=== PATIENT | male | born 1955 | race African-American/Black ===

== ENCOUNTER 2018-08-14 10:20 | Emergency (ER) | payer MEDICAID ==
[~2018-08-14] VITALS: Ht 175.3 cm; Wt 90.7 kg
[2018-08-14] MEDS ORDERED: FOLIC ACID1 MG ORAL (10:43)
[2018-08-14] MEDS ORDERED: METOPROLOL TART50 M1 ORAL (10:43)
[2018-08-14] MEDS ORDERED: ASPIR 8181 MG ORAL (10:43)
[2018-08-14] MEDS ORDERED: PLAVIX75 MG ORAL (10:43)
[2018-08-14] MEDS ORDERED: ATORVASTATIN CA40 MG ORAL (10:43)
[2018-08-14] MEDS ORDERED: Vancomycin 1 GM in NS 275 ML IV ONE (10:45)
[2018-08-14] MEDS ORDERED: AMLODIPINE BESY10 MG ORAL (10:45)
[2018-08-14] MEDS ORDERED: QUETIAPINE FUMA50 MG ORAL (10:45)
[2018-08-14] MEDS ORDERED: HYDROCHLOROTH12.5 M2 ORAL (10:45)
[2018-08-14] MEDS ORDERED: LORAZEPAM0.5 MG ORAL (10:45)
[2018-08-14] MEDS ORDERED: DONEPEZIL HCL10 M2 ORAL (10:45)
[2018-08-14 11:15] VITALS: BP 159/81
[2018-08-14 11:30] LABS: BASOPHILS % (AUTO) 1.3 % (0.0-2.0); EOSINOPHILS % (AUTO) 6.7 % (0.0-3.0); HEMOGLOBIN 10.5 G/DL (14.2-18.0); LYMPHOCYTES % (AUTO) 23.6 % (20.0-45.0); MEAN CORPUSCULAR VOLUME 78 FL (80-99); MONOCYTES % (AUTO) 10.2 % (1.0-10.0); NEUTROPHILS % (AUTO) 58.2 % (45.0-75.0); PLATELET COUNT 255 K/UL (150-450); RED BLOOD COUNT 4.11 M/UL (4.70-6.10)
[2018-08-14 11:47] LABS: ANION GAP 7 mmol/L (5-15); BLOOD UREA NITROGEN 21 mg/dL (7-18); CALCIUM 9.4 MG/DL (8.5-10.1); CARBON DIOXIDE 32 MMOL/L (21-32); CHLORIDE 105 MMOL/L (98-107); CREATININE 1.3 MG/DL (0.55-1.30); SODIUM 144 MMOL/L (136-145)
[2018-08-14 11:53] LABS: ALANINE AMINOTRANSFERASE 14 U/L (12-78); ALBUMIN 3.1 G/DL (3.4-5.0); ALBUMIN/GLOBULIN RATIO 0.7 (1.0-2.7); ALKALINE PHOSPHATASE 78 U/L (46-116); ASPARTATE AMINO TRANSFERASE 16 U/L (15-37); BILIRUBIN,TOTAL 0.4 MG/DL (0.2-1.0); CREATINE KINASE 72 U/L (26-308)
[2018-08-14] MEDS ORDERED: Isovue-300 100ml vial INJ PRN ×2 (13:45→14:45)
[2018-08-14 14:00] VITALS: BP 162/84
--- NOTE | 2018-08-14 14:50 | Emergency Room Report ---
History of Present Illness General Chief Complaint: Skin Rash/Abscess Source: Patient Present Illness HPI This patient presents from an assisted living facility. Per report, this patient had some area of swelling and warmth that was concerning for infection on his right upper leg. The patient himself has a history of CVA and is nonverbal at baseline. He is unable to give a history. He will shake his head yes and I asked him if he has pain in this location. There are no other complaints. Allergies: Coded Allergies: No Known Allergies (Unverified , 08/14/18) Patient History Past Medical History: see triage record, HTN, CVA/TIA, dementia Social History: Denies: smoking, alcohol use, drug use Reviewed Nursing Documentation: PMH: Agreed; PSxH: Agreed Nursing Documentation-PMH Past Medical History: No History, Except For Hx Cardiac Problems: No Hx Hypertension: Yes Hx Pacemaker: No Hx Asthma: No Hx COPD: No Hx Diabetes: No Hx Cancer: No Hx Gastrointestinal Problems: No Hx Dialysis: No - BPH History Of Psychiatric Problem: No Hx Neurological Problems: Yes - Dementia Hx Cerebrovascular Accident: Yes Hx Seizures: No Review of Systems All Other Systems: limited Physical Exam Vital Signs Date Time Temp Pulse Resp B/P (MAP) Pulse Ox O2 Delivery O2 Flow Rate FiO2 08/14/18 10:24 98.2 88 16 152/88 100 Room Air 98.2 Sp02 EP Interpretation: reviewed, normal General Appearance: no apparent distress, alert, GCS 15, non-toxic Head: normocephalic, atraumatic Eyes: bilateral eye normal inspection, bilateral eye PERRL ENT: hearing grossly normal, no angioedema Neck: full range of motion, supple/symm/no masses Respiratory: chest non-tender, lungs clear, normal breath sounds, no respiratory distress, no retraction, no accessory muscle use, speaking full sentences Cardiovascular #1: regular rate, rhythm, no edema Gastrointestinal: normal bowel sounds, non tender, soft, non-distended, no guarding, no rebound Rectal: deferred Musculoskeletal: normal range of motion, other - R. lateral thigh with swelling , ? warmth. TTP in that location. No obvious erythema. Neurologic: alert, responsive, other - Non-verbal at baseline. At baseline per history. Psychiatric: mood/affect normal Skin: warm/dry, well hydrated, other - See above in MSK. Medical Decision Making Diagnostic Impression: Primary Impression: Cellulitis ER Course This patient has findings on exam that is likely cellulitis. The patient is pending a CT of the thigh to assess for possible occult abscess, although, did not palpate any fluctuance and I have a low suspicion for this. Regardless, CT is pending at the time of this dictation. The patient is also planned to be transferred to [facility]. I spoke with the accepting physician. The patient was given broad-spectrum antibiotics remained stable in the emergency department. He is stable for transfer. Laboratory Tests Test 08/14/18 11:07 08/14/18 13:25 White Blood Count 7.0 K/UL (4.8-10.8) Red Blood Count 4.11 M/UL (4.70-6.10) L Hemoglobin 10.5 G/DL (14.2-18.0) L Hematocrit 32.0 % (42.0-52.0) L Mean Corpuscular Volume 78 FL (80-99) L Mean Corpuscular Hemoglobin 25.5 PG (27.0-31.0) L Mean Corpuscular Hemoglobin Concent 32.7 G/DL (32.0-36.0) Red Cell Distribution Width 14.0 % (11.6-14.8) Platelet Count 255 K/UL (150-450) Mean Platelet Volume 9.2 FL (6.5-10.1) Neutrophils (%) (Auto) 58.2 % (45.0-75.0) Lymphocytes (%) (Auto) 23.6 % (20.0-45.0) Monocytes (%) (Auto) 10.2 % (1.0-10.0) H Eosinophils (%) (Auto) 6.7 % (0.0-3.0) H Basophils (%) (Auto) 1.3 % (0.0-2.0) Sodium Level 144 MMOL/L (136-145) Potassium Level 3.0 MMOL/L (3.5-5.1) L Chloride Level 105 MMOL/L (98-107) Carbon Dioxide Level 32 MMOL/L (21-32) Anion Gap 7 mmol/L (5-15) Blood Urea Nitrogen 21 mg/dL (7-18) H Creatinine 1.3 MG/DL (0.55-1.30) Estimate Glomerular Filtration Rate > 60 mL/min (>60) Glucose Level 134 MG/DL (74-106) H Lactic Acid Level 2.20 mmol/L (0.4-2.0) H 1.30 mmol/L (0.66-2.22) Calcium Level 9.4 MG/DL (8.5-10.1) Total Bilirubin 0.4 MG/DL (0.2-1.0) Aspartate Amino Transferase (AST) 16 U/L (15-37) Alanine Aminotransferase (ALT) 14 U/L (12-78) Alkaline Phosphatase 78 U/L (46-116) Total Creatine Kinase 72 U/L (26-308) Total Protein 7.6 G/DL (6.4-8.2) Albumin 3.1 G/DL (3.4-5.0) L Globulin 4.5 g/dL Albumin/Globulin Ratio 0.7 (1.0-2.7) L CT/MRI/US Diagnostic Results CT/MRI/US Diagnostic Results : Imaging Test Ordered: CT R. hip Impression Approximately 13 x 7 x 4 cm phlegmon/abscess versus hematoma in the central aspect of the right gluteus martha. Please correlate clinically. Last Vital Signs Date Time Temp Pulse Resp B/P (MAP) Pulse Ox O2 Delivery O2 Flow Rate FiO2 08/14/18 14:00 98.2 89 16 162/84 100 Room Air 98.2 Disposition: XFER [facility] H[facility] Condition: Stable Referrals: KARLA OTTO (PCP) Jodie Serra DO Aug 14, 2018 14:49
--- NOTE | 2018-08-14 15:50 | Diagnostic Imaging Report ---
Indication: Cellulitis right buttock region. Redness and swelling Technique: continuous helical imaging in the transaxial plane was performed from the iliac crests to the pubic symphysis with attention to the right hip/hemipelvis. Coronal 2-D reformatted images were also generated. Study obtained in a Siemens Sensation [address] total DLP: 460.05 mGycm CTD/vol: 11.2 mGy Comparison: None Findings: There is enlargement of the right gluteus martha muscle secondary to abnormal area of low attenuation suspicious for underlying phlegmon or abscess which has approximate dimensions of 13 x 7 x 4 cm. If there is history of trauma, would also consider possibility of a liquefied hematoma. There is no decubitus ulceration identified. There is no periostitis, fracture, erosion of the adjacent right femur. IMPRESSION: Approximately 13 x 7 x 4 cm phlegmon/abscess versus hematoma in the central aspect of the right gluteus martha. Please correlate clinically. The CT scanner at [facility] is accredited by the [employer] and the scans are performed using dose optimization techniques as appropriate to a performed exam including Automatic Exposure control.
[2018-08-14 16:00] VITALS: BP 170/98
[2018-08-14 16:05] VITALS: BP 162/84
== END 2018-08-14 16:05 | disposition short-term general hospital (02) ==
LOC: EDBD 10:20 → EMR 11:22
DX: L03.115 Cellulitis of right lower limb (principal); I10 Essential (primary) hypertension; F03.90 Unspecified dementia, unspecified severity, without behavioral disturbance, psychotic disturbance, mood disturbance, and anxiety; Z86.73 Personal history of transient ischemic attack (TIA), and cerebral infarction without residual deficits
CPT/HCPCS: 36415; 73702; 80053; 82550; 83605; 85025; 87040; 96361; 96365; 96368; 99285; J3370; J7050; Q9967; J8499

== ENCOUNTER 2018-12-15 19:41 | Emergency (ER) | payer MEDICAID ==
[~2018-12-15] VITALS: Ht 175.3 cm; Wt 79.4 kg
[~2018-12-15 19:41] MED LIST: AMLODIPINE BESY10 MG ORAL; ASPIR 8181 MG ORAL; ATORVASTATIN CA40 MG ORAL; DONEPEZIL HCL10 M2 ORAL; FOLIC ACID1 MG ORAL; HYDROCHLOROTH12.5 M2 ORAL; LORAZEPAM0.5 MG ORAL; METOPROLOL TART50 M1 ORAL; PLAVIX75 MG ORAL; QUETIAPINE FUMA50 MG ORAL
[2018-12-15] MEDS ORDERED: LOPRESSOR25 M1 ORAL (20:27)
[2018-12-15] MEDS ORDERED: NORVASC10 MG ORAL (20:27)
[2018-12-15] MEDS ORDERED: SEROQUEL50 MG ORAL (20:27)
[2018-12-15] MEDS ORDERED: CLOPIDOGREL75 MG ORAL (20:27)
[2018-12-15] MEDS ORDERED: FOLIC ACID1 M1 PO (20:27)
[2018-12-15] MEDS ORDERED: DONEPEZIL HCL10 MG ORAL (20:27)
[2018-12-15] MEDS ORDERED: MICROZIDE12.5 M1 PO (20:27)
[2018-12-15] MEDS ORDERED: BENZTROPINE ME0.5 MG PO (20:27)
[2018-12-15] MEDS ORDERED: RISPERIDONE4 MG ORAL (20:27)
[2018-12-15] MEDS ORDERED: Haloperidol 5mg/ml Inj IM ONE (20:30)
[2018-12-15 20:51] VITALS: BP 135/82
--- NOTE | 2018-12-15 20:51 | NUR ---
ER Nurse Note: Pt BIBA from care facility due to increased agitation. Per EMS, pt was combative and aggressive at faciltiy for unknown causes. Pt is able to verbalze; a&ox3, VSS, no signs of distress. Pt follow commands and less agitated. ERMD at pt side; will continue to montior.
--- NOTE | 2018-12-15 21:18 | Emergency Room Report ---
History of Present Illness General Chief Complaint: General Complaint Source: Patient Present Illness HPI Patient is a 63-year-old male brought in by EMS after increased agitation. Patient reportedly had been more combative at his facility. He had been noted to be intermittently agitated. Patient was brought in by EMS. Patient noted to be calm during transport. Patient was sent for further evaluation. Patient was noted to have prior history of vascular dementia. Allergies: Coded Allergies: No Known Allergies (Unverified , 08/14/18) Patient History Past Medical History: see triage record Reviewed Nursing Documentation: PMH: Agreed; PSxH: Agreed Nursing Documentation-PMH Hx Cardiac Problems: No Hx Hypertension: Yes Hx Pacemaker: No Hx Asthma: No Hx COPD: No Hx Diabetes: No Hx Cancer: No Hx Gastrointestinal Problems: No Hx Dialysis: No - BPH Hx Neurological Problems: Yes - Dementia Hx Cerebrovascular Accident: Yes Hx Seizures: No Review of Systems All Other Systems: negative except mentioned in HPI Physical Exam Vital Signs Date Time Temp Pulse Resp B/P (MAP) Pulse Ox O2 Delivery O2 Flow Rate FiO2 12/15/18 19:29 98.1 86 16 135/82 94 Room Air Sp02 EP Interpretation: reviewed, normal General Appearance: normal inspection, no apparent distress, alert, Chronically Ill Head: atraumatic ENT: normal ENT inspection, hearing grossly normal, normal voice Neck: normal inspection, full range of motion, supple, no bony tend Respiratory: normal inspection, lungs clear, normal breath sounds, no respiratory distress, no retraction, no wheezing Cardiovascular #1: regular rate, rhythm, no edema Gastrointestinal: normal inspection, normal bowel sounds, non tender, soft, no guarding, no hernia Genitourinary: no CVA tenderness Musculoskeletal: normal inspection, back normal, normal range of motion Neurologic: normal inspection, alert, responsive, speech normal, motor weakness Psychiatric: normal inspection, mood/affect normal Skin: normal inspection, normal color, no rash Medical Decision Making Diagnostic Impression: Primary Impression: Agitation ER Course Patient presented for agitation. Differential diagnosis include was not limited to psychosis, dementia, delirium among others. Because of complexity of patient's case laboratory testing and imaging studies were ordered. CT of the head read by radiology showed no evidence of acute intracranial hemorrhage or CVA. Patient is noted to be awake and alert. Patient was given Haldol. Patient does not appear to be acutely agitated. He will be sent back to his nursing facility. Labs Test 12/15/18 21:15 White Blood Count 7.1 K/UL (4.8-10.8) Red Blood Count 4.79 M/UL (4.70-6.10) Hemoglobin 11.6 G/DL (14.2-18.0) Hematocrit 36.0 % (42.0-52.0) Mean Corpuscular Volume 75 FL (80-99) Mean Corpuscular Hemoglobin 24.3 PG (27.0-31.0) Mean Corpuscular Hemoglobin Concent 32.3 G/DL (32.0-36.0) Red Cell Distribution Width 15.5 % (11.6-14.8) Platelet Count 197 K/UL (150-450) Mean Platelet Volume 8.5 FL (6.5-10.1) Neutrophils (%) (Auto) 60.9 % (45.0-75.0) Lymphocytes (%) (Auto) 20.7 % (20.0-45.0) Monocytes (%) (Auto) 12.2 % (1.0-10.0) Eosinophils (%) (Auto) 4.8 % (0.0-3.0) Basophils (%) (Auto) 1.4 % (0.0-2.0) Urine Color Pale yellow Urine Appearance Clear Urine pH 6 (4.5-8.0) Urine Specific [place] 1.015 (1.005-1.035) Urine Protein 1+ (NEGATIVE) Urine Glucose (UA) 1+ (NEGATIVE) Urine Ketones Negative (NEGATIVE) Urine Blood Negative (NEGATIVE) Urine Nitrite Negative (NEGATIVE) Urine Bilirubin Negative (NEGATIVE) Urine Urobilinogen Normal MG/DL (0.0-1.0) Urine Leukocyte Esterase Negative (NEGATIVE) Urine RBC 0-2 /HPF (0 - 0) Urine WBC 0-2 /HPF (0 - 0) Urine Squamous Epithelial Cells Occasional /LPF Urine Bacteria None /HPF (NONE) Sodium Level 145 MMOL/L (136-145) Potassium Level 3.7 MMOL/L (3.5-5.1) Chloride Level 104 MMOL/L (98-107) Carbon Dioxide Level 35 MMOL/L (21-32) Anion Gap 6 mmol/L (5-15) Blood Urea Nitrogen 21 mg/dL (7-18) Creatinine 1.4 MG/DL (0.55-1.30) Estimat Glomerular Filtration Rate > 60 mL/min (>60) Glucose Level 129 MG/DL (74-106) Calcium Level 9.1 MG/DL (8.5-10.1) Total Bilirubin 0.3 MG/DL (0.2-1.0) Aspartate Amino Transf (AST/SGOT) 21 U/L (15-37) Alanine Aminotransferase (ALT/SGPT) 18 U/L (12-78) Alkaline Phosphatase 84 U/L (46-116) Total Protein 7.5 G/DL (6.4-8.2) Albumin 3.3 G/DL (3.4-5.0) Globulin 4.2 g/dL Albumin/Globulin Ratio 0.8 (1.0-2.7) Thyroid Stimulating Hormone (TSH) 1.619 uiU/mL (0.358-3.740) Salicylates Level 0.7 ug/mL (2.8-20) Urine Opiates Screen Negative (NEGATIVE) Acetaminophen Level < 2 MCG/ML (10-30) Urine Barbiturates Screen Negative (NEGATIVE) Phencyclidine (PCP) Screen Negative (NEGATIVE) Urine Amphetamines Screen Negative (NEGATIVE) Urine Benzodiazepines Screen Negative (NEGATIVE) Urine Cocaine Screen Negative (NEGATIVE) Urine Marijuana (THC) Screen Negative (NEGATIVE) Serum Alcohol < 3 mg/dL Last Vital Signs Date Time Temp Pulse Resp B/P (MAP) Pulse Ox O2 Delivery O2 Flow Rate FiO2 12/15/18 20:51 86 16 Room Air 12/15/18 20:51 98.1 135/82 94 Status: improved Disposition: XFER SNF Condition: Stable Referrals: ACCOUNT[facility],REFERRING (PCP) Troy Serrano MD Dec 15, 2018 21:18
--- NOTE | 2018-12-15 21:29 | NUR ---
Spoke with Rosalina at [facility], aware of patient going back by ambulance. [facility] [id number].
[2018-12-15 21:32] LABS: BASOPHILS % (AUTO) 1.4 % (0.0-2.0); EOSINOPHILS % (AUTO) 4.8 % (0.0-3.0); HEMOGLOBIN 11.6 G/DL (14.2-18.0); LYMPHOCYTES % (AUTO) 20.7 % (20.0-45.0); MEAN CORPUSCULAR VOLUME 75 FL (80-99); MONOCYTES % (AUTO) 12.2 % (1.0-10.0); NEUTROPHILS % (AUTO) 60.9 % (45.0-75.0); PLATELET COUNT 197 K/UL (150-450); RED BLOOD COUNT 4.79 M/UL (4.70-6.10); RED CELL DISTRIBUTION WIDTH 15.5 % (11.6-14.8); WHITE BLOOD COUNT 7.1 K/UL (4.8-10.8)
[2018-12-15 21:36] LABS: ANION GAP 6 mmol/L (5-15); BLOOD UREA NITROGEN 21 mg/dL (7-18); CALCIUM 9.1 MG/DL (8.5-10.1); CARBON DIOXIDE 35 MMOL/L (21-32); CHLORIDE 104 MMOL/L (98-107); CREATININE 1.4 MG/DL (0.55-1.30); POTASSIUM 3.7 MMOL/L (3.5-5.1); SODIUM 145 MMOL/L (136-145)
[2018-12-15 21:51] LABS: ALANINE AMINOTRANSFERASE 18 U/L (12-78); ALBUMIN 3.3 G/DL (3.4-5.0); ALBUMIN/GLOBULIN RATIO 0.8 (1.0-2.7); ALKALINE PHOSPHATASE 84 U/L (46-116); ASPARTATE AMINO TRANSFERASE 21 U/L (15-37); BILIRUBIN,TOTAL 0.3 MG/DL (0.2-1.0)
--- NOTE | 2018-12-15 22:20 | NUR ---
ER Nurse Note: Pt got out of bed; redirected pt to lay down and explained the risks of falling. Pt VSS, no signs of distress. Will continue to montior.
[2018-12-15 23:00] VITALS: BP 150/95
--- NOTE | 2018-12-15 23:00 | NUR ---
ER Nurse Note: Pt seen, treated, medically cleared for discharge by ERMD. Discharge instructions and prescritpions given to BLS transport. Instructed pt to follow up with primary care physican within one week. Pt alert and awake, VSS, no signs of distress. ID band removed. IV removed; site clean and bandaged. Pt left with all belongings. Left via own BLS to facility.
[2018-12-16 00:57] LABS: APPEARANCE,URINE CLEAR; BILIRUBIN, URINE NEGATIVE (NEGATIVE); COLOR,URINE PALE YELLOW; GLUCOSE, URINE (UA) 1+ (NEGATIVE); KETONES,URINE NEGATIVE (NEGATIVE); LEUKOCYTE ESTERASE ,URINE NEGATIVE (NEGATIVE); NITRITE,URINE NEGATIVE (NEGATIVE); PH,URINE 6 (4.5-8.0); PROTEIN,URINE 1+ (NEGATIVE); UROBILINOGEN,URINE NORMAL MG/DL (0.0-1.0)
== END 2018-12-15 23:00 | disposition home or self-care (01) ==
LOC: EDBD 19:41 → EMR 20:20
DX: R45.1 Restlessness and agitation (principal); I10 Essential (primary) hypertension; F03.90 Unspecified dementia, unspecified severity, without behavioral disturbance, psychotic disturbance, mood disturbance, and anxiety; Z86.73 Personal history of transient ischemic attack (TIA), and cerebral infarction without residual deficits; N40.0 Benign prostatic hyperplasia without lower urinary tract symptoms
CPT/HCPCS: 36415; 70450; 80053; 80307; 80329; 81003; 84443; 85025; 96372; 99284; J1630

== ENCOUNTER 2020-03-16 06:13 | Inpatient (IN) | payer MEDICAID ==
[2020-03-16] VITALS (61 sets, daily range): BP systolic 33–102; BP diastolic 14–77
[~2020-03-16] VITALS: Ht 185.4 cm; Wt 68.0 kg
[~2020-03-16 06:13] MED LIST changes: +BENZTROPINE ME0.5 MG PO; +CLOPIDOGREL75 MG ORAL; +DONEPEZIL HCL10 MG ORAL; +FOLIC ACID1 M1 PO; +LOPRESSOR25 M1 ORAL; +MICROZIDE12.5 M1 PO; +NORVASC10 MG ORAL; +RISPERIDONE4 MG ORAL; +SEROQUEL50 MG ORAL
[2020-03-16] MEDS ORDERED: Vancomycin 1 GM in NS 275 ML IV ONE (06:15)
[2020-03-16] MEDS ORDERED: Cefepime HCl 2 GM in NS 110 ML IV ONE (06:15)
--- NOTE | 2020-03-16 06:57 | Emergency Room Report ---
History of Present Illness General Chief Complaint: Dyspnea/Respdistress Source: EMS Present Illness HPI 64-year-old male history of metabolic encephalopathy chronic in nature, presents with shortness of breath that started unknown time, no known aggravating relieving factors severity is severe, constant patient presents in acute respiratory distress tachypneic by EMS patient presents for evaluation Allergies: Coded Allergies: No Known Allergies (Unverified , 08/14/18) COVID-19 Screening Contact w/high risk pt: Yes Recent Travel to affected area: No Experienced COVID-19 symptoms?: Yes COVID-19 symptoms experienced: Shortness of Breath COVID-19 Testing performed CIVIL DESIGNER: No Patient History Limited by: medical condition - Altered mental status Past Medical History: see triage record Reviewed Nursing Documentation: PMH: Agreed; PSxH: Agreed Nursing Documentation-PMH Hx Cardiac Problems: No Hx Hypertension: Yes - HDL, HYPOCALCEMIA Hx Pacemaker: No Hx Asthma: No Hx COPD: No Hx Diabetes: No Hx Cancer: No Hx Dialysis: No - BPH Hx Neurological Problems: Yes - Dementia Hx Seizures: No Review of Systems All Other Systems: limited - Altered mental status Physical Exam Vital Signs Date Time Temp Pulse Resp B/P (MAP) Pulse Ox O2 Delivery O2 Flow Rate FiO2 03/16/20 06:10 97.9 142 28 102/77 (85) 96 Non-Rebreather 10.0 Sp02 EP Interpretation: reviewed, abnormal - Hypoxic General Appearance: severe distress, cachetic, Chronically Ill Head: normocephalic, atraumatic Eyes: bilateral eye PERRL, bilateral eye EOMI ENT: uvula midline, dry mucus membranes Neck: supple, thyroid normal, supple/symm/no masses Respiratory: decreased breath sounds, accessory muscle use, rhonchi Cardiovascular #1: normal peripheral pulses, no edema, no gallop, no murmur, tachycardia Gastrointestinal: non tender, soft, no guarding, no rebound Musculoskeletal: normal inspection Neurologic: other - Minimally responsive moving all 4 extremities Skin: no rash, warm/dry Procedures Critical Care Time Critical Care Time Given the critical condition in which the patient arrived, the patient was immediately assessed by myself and the nurse, and cardiac monitoring initiated due to the potential for rapid decompensation of the patient's clinical condition. During the course of the patient's stay, I spent a considerable amount of time at the bedside performing serial re-evaluations of the patient's hemodynamic and clinical status because of the recognized potential threat to life or limb in this condition. I then had a chance to review not only all of the available current laboratory and radiographic studies obtained today, but I also reviewed old records available to me at the time. Additionally, any ancillary information available including technical associate records were reviewed. Sequential vital signs were obtained. Critical Care time of 33 minutes was performed exclusive of billable procedures. Intubation Intubation : Consent: Emergent Time of Intubation: 06:50 Intubation Method: orotracheal Tube Size (cm): 7.5 Medications: Etomidate, Rocuronium Breath Sounds after Intubation: equal Intubation Complications: no complications Post Intubation Xray: Yes Progress/Xray Impression: Endotracheal tube well-seated Attempts: One Patient Tolerated: Well Complications: None Medical Decision Making Diagnostic Impression: Primary Impression: Respiratory distress Additional Impressions: AMS (altered mental status) Qualified Codes: R41.82 - Altered mental status, unspecified Hypoxia UTI (urinary tract infection) Qualified Codes: N39.0 - Urinary tract infection, site not specified Sepsis Qualified Codes: A41.9 - Sepsis, unspecified organism ER Course 64-year-old male presents with respiratory failure, tachypnea in the setting, hypoxic. Patient emergently intubated, patient found to have an elevated lactic acidosis most likely secondary to sepsis. Patient emergently intubated, patient given antibiotics, given 3 L of fluid resuscitation, patient also started on cefepime and vancomycin, patient has an elevated troponin in the setting of demand ischemia. patient admitted to Dr. Luna Laboratory Tests Test 03/16/20 06:40 White Blood Count 18.2 K/UL (4.8-10.8) H Red Blood Count 6.87 M/UL (4.70-6.10) H Hemoglobin 17.6 G/DL (14.2-18.0) Hematocrit 54.9 % (42.0-52.0) H Mean Corpuscular Volume 80 FL (80-99) Mean Corpuscular Hemoglobin 25.7 PG (27.0-31.0) L Mean Corpuscular Hemoglobin Concent 32.1 G/DL (32.0-36.0) Red Cell Distribution Width 13.7 % (11.6-14.8) Platelet Count 233 K/UL (150-450) Mean Platelet Volume 8.8 FL (6.5-10.1) Neutrophils (%) (Auto) % (45.0-75.0) Lymphocytes (%) (Auto) % (20.0-45.0) Monocytes (%) (Auto) % (1.0-10.0) Eosinophils (%) (Auto) % (0.0-3.0) Basophils (%) (Auto) % (0.0-2.0) Neutrophils % (Manual) Pending Lymphocytes % (Manual) Pending Platelet Estimate Pending Platelet Morphology Pending Prothrombin Time 12.0 SEC (9.30-11.50) H Prothrombin Time INR 1.1 (0.9-1.1) Activated Partial Thromboplast Time 19 SEC (23-33) L Urine Color Pale yellow Urine Appearance Slightly cloudy Urine pH 5 (4.5-8.0) Urine Specific [place] 1.020 (1.005-1.035) Urine Protein 2+ (NEGATIVE) H Urine Glucose (UA) 4+ (NEGATIVE) H Urine Ketones 1+ (NEGATIVE) H Urine Blood 3+ (NEGATIVE) H Urine Nitrite Negative (NEGATIVE) Urine Bilirubin Negative (NEGATIVE) Urine Urobilinogen Normal MG/DL (0.0-1.0) Urine Leukocyte Esterase 3+ (NEGATIVE) H Urine RBC 5-10 /HPF (0 - 0) H Urine WBC 30-40 /HPF (0 - 0) H Urine Squamous Epithelial Cells Few /LPF (NONE/OCC) Urine Bacteria Moderate /HPF (NONE) H Sodium Level Pending Potassium Level Pending Chloride Level Pending Carbon Dioxide Level Pending Blood Urea Nitrogen Pending Creatinine Pending Estimated Glomerular Filtration Rate Pending Glucose Level Pending Lactic Acid Level 7.50 mmol/L (0.4-2.0) H Calcium Level Pending Phosphorus Level Pending Magnesium Level Pending Total Bilirubin Pending Aspartate Amino Transferase (AST) Pending Alanine Aminotransferase (ALT) Pending Alkaline Phosphatase Pending Total Creatine Kinase Pending Creatine Kinase MB Pending Troponin I 1.478 ng/mL (0.000-0.056) Pro-B-Type Natriuretic Peptide Pending Total Protein Pending Albumin Pending Globulin Pending Lipase Pending EKG Diagnostic Results EKG Time: 06:05 EP Interpretation: Sinus tachycardia, rate 154, QTc 506, no acute ST elevations , normal axis Rhythm Strip Diag. Results Rhythm Strip Time: 06:57 EP Interpretation: yes Rate: 135 Rhythm: other - Sinus tachycardia Chest X-Ray Diagnostic Results Chest X-Ray Diagnostic Results : Chest X-Ray Ordered: Yes # of Views/Limited/Complete: 1 View Indication: Shortness of Breath EP Interpretation: Yes Interpretation: no consolidation, no effusion, no pneumothorax, no acute cardiopulmonary disease, other - Endotracheal tube well-seated Impression: Other - Endotracheal tube well-seated Electronically Signed by: Mauri Peters MD Last Vital Signs Date Time Temp Pulse Resp B/P (MAP) Pulse Ox O2 Delivery O2 Flow Rate FiO2 03/16/20 06:10 97.9 142 28 102/77 (85) 96 Non-Rebreather 10.0 Disposition: ADMITTED INPATIENT Condition: Critical Referrals: NON PHYSICIAN (PCP) Focused Exam Allergies: Coded Allergies: No Known Allergies (Unverified , 08/14/18) Date Exam Occurred: March 16, 2020 Time Exam Occurred: 07:57 Laboratory Studies Laboratory Tests Test 03/16/20 06:40 White Blood Count 18.2 K/UL (4.8-10.8) H Red Blood Count 6.87 M/UL (4.70-6.10) H Hemoglobin 17.6 G/DL (14.2-18.0) Hematocrit 54.9 % (42.0-52.0) H Mean Corpuscular Volume 80 FL (80-99) Mean Corpuscular Hemoglobin 25.7 PG (27.0-31.0) L Mean Corpuscular Hemoglobin Concent 32.1 G/DL (32.0-36.0) Red Cell Distribution Width 13.7 % (11.6-14.8) Platelet Count 233 K/UL (150-450) Mean Platelet Volume 8.8 FL (6.5-10.1) Neutrophils (%) (Auto) % (45.0-75.0) Lymphocytes (%) (Auto) % (20.0-45.0) Monocytes (%) (Auto) % (1.0-10.0) Eosinophils (%) (Auto) % (0.0-3.0) Basophils (%) (Auto) % (0.0-2.0) Neutrophils % (Manual) Pending Lymphocytes % (Manual) Pending Platelet Estimate Pending Platelet Morphology Pending Prothrombin Time 12.0 SEC (9.30-11.50) H Prothromb Time International Ratio 1.1 (0.9-1.1) Activated Partial Thromboplast Time 19 SEC (23-33) L Urine Color Pale yellow Urine Appearance Slightly cloudy Urine pH 5 (4.5-8.0) Urine Specific [place] 1.020 (1.005-1.035) Urine Protein 2+ (NEGATIVE) H Urine Glucose (UA) 4+ (NEGATIVE) H Urine Ketones 1+ (NEGATIVE) H Urine Blood 3+ (NEGATIVE) H Urine Nitrite Negative (NEGATIVE) Urine Bilirubin Negative (NEGATIVE) Urine Urobilinogen Normal MG/DL (0.0-1.0) Urine Leukocyte Esterase 3+ (NEGATIVE) H Urine RBC 5-10 /HPF (0 - 0) H Urine WBC 30-40 /HPF (0 - 0) H Urine Squamous Epithelial Cells Few /LPF (NONE/OCC) Urine Bacteria Moderate /HPF (NONE) H Sodium Level Pending Potassium Level Pending Chloride Level Pending Carbon Dioxide Level Pending Blood Urea Nitrogen Pending Creatinine Pending Estimat Glomerular Filtration Rate Pending Glucose Level Pending Lactic Acid Level 7.50 mmol/L (0.4-2.0) H Calcium Level Pending Phosphorus Level Pending Magnesium Level Pending Total Bilirubin Pending Aspartate Amino Transf (AST/SGOT) Pending Alanine Aminotransferase (ALT/SGPT) Pending Alkaline Phosphatase Pending Total Creatine Kinase Pending Creatine Kinase MB Pending Troponin I 1.478 ng/mL (0.000-0.056) Pro-B-Type Natriuretic Peptide Pending Total Protein Pending Albumin Pending Globulin Pending Lipase Pending Vital Signs Last 24 Hour Vital Signs Date Time Temp Pulse Resp B/P (MAP) Pulse Ox O2 Delivery O2 Flow Rate FiO2 03/16/20 07:24 25 93/63 Mechanical Ventilator 100 03/16/20 07:03 25 25 100 03/16/20 06:15 140 39 Non-Rebreather 10.0 03/16/20 06:10 97.9 142 28 102/77 (85) 96 Non-Rebreather 10.0 Respiratory Exam: Clear Cardiovascular Exam: Tachycardia Capillary Refill: Less Than 2 Seconds Peripheral Pulse: Strong Pulse Location: Radial Skin Exam: Normal Mauri Gray MD March 16, 2020 06:57
[2020-03-16] MEDS ORDERED: propofoL 1,000mg/100ml 100 ML IV SCH (07:00)
[2020-03-16 07:23] LABS: HEMATOCRIT 54.9 % (42.0-52.0); HEMOGLOBIN 17.6 G/DL (14.2-18.0); MEAN CORPUSCULAR VOLUME 80 FL (80-99); PLATELET COUNT 233 K/UL (150-450); RED BLOOD COUNT 6.87 M/UL (4.70-6.10); RED CELL DISTRIBUTION WIDTH 13.7 % (11.6-14.8); WHITE BLOOD COUNT 18.2 K/UL (4.8-10.8)
[2020-03-16] MEDS ORDERED: Vancomycin 1gm vial IVPB ONE (07:24)
[2020-03-16] MEDS ORDERED: Cefepime 2gm ONE (07:24)
[2020-03-16 07:37] LABS: APPEARANCE,URINE SLIGHTLY CLOUDY; BILIRUBIN, URINE NEGATIVE (NEGATIVE); COLOR,URINE PALE YELLOW; GLUCOSE, URINE (UA) 4+ (NEGATIVE); KETONES,URINE 1+ (NEGATIVE); LEUKOCYTE ESTERASE ,URINE 3+ (NEGATIVE); NITRITE,URINE NEGATIVE (NEGATIVE); PH,URINE 5 (4.5-8.0); PROTEIN,URINE 2+ (NEGATIVE); UROBILINOGEN,URINE NORMAL MG/DL (0.0-1.0)
[2020-03-16] MEDS ORDERED: LEXAPRO5 MG ORAL (07:37)
[2020-03-16] MEDS ORDERED: MEGACE ORA400 MG/10 ORAL (07:37)
[2020-03-16] MEDS ORDERED: PRO-STAT LIQUID30 ML ORAL (07:38)
[2020-03-16 07:39] LABS: INR 1.1 (0.9-1.1)
[2020-03-16] MEDS ORDERED: ACETAMINOPHEN325 M1 ORAL (07:40)
[2020-03-16] MEDS ORDERED: VITAMIN C500 M1 ORAL (07:40)
[2020-03-16 07:49] LABS: ALANINE AMINOTRANSFERASE 20 U/L (12-78); ALBUMIN 3.5 G/DL (3.4-5.0); ALBUMIN/GLOBULIN RATIO 0.7 (1.0-2.7); ALKALINE PHOSPHATASE 132 U/L (46-116); ANION GAP 27 mmol/L (5-15); ASPARTATE AMINO TRANSFERASE 18 U/L (15-37); BILIRUBIN,TOTAL 0.4 MG/DL (0.2-1.0); BLOOD UREA NITROGEN 119 mg/dL (7-18); CALCIUM 10.2 MG/DL (8.5-10.1); CARBON DIOXIDE 23 MMOL/L (21-32); CHLORIDE 122 MMOL/L (98-107); CKMB 3.8 NG/ML (0.0-3.6); CREATINE KINASE 541 U/L (26-308); CREATININE 5.9 MG/DL (0.55-1.30); PHOSPHORUS 9.6 MG/DL (2.5-4.9); POTASSIUM 3.5 MMOL/L (3.5-5.1)
[2020-03-16 08:08] LABS: SODIUM 172 MMOL/L (136-145)
[2020-03-16] MEDS ORDERED: Insulin Reg 100 units Premix 100 ML IV SCH (08:15)
[2020-03-16] MEDS ORDERED: Insulin Human Regular 100units/ml 3ml IV ONE (08:15)
[2020-03-16] MEDS ORDERED: Insulin Human Regular 100units/ml 3ml ONE (08:20)
[2020-03-16] MEDS ORDERED: Levophed 4mg/4mL Inj IV ONE (09:27)
--- NOTE | 2020-03-16 09:33 | Emergency Room Report ---
History of Present Illness General Chief Complaint: Dyspnea/Respdistress Source: EMS Present Illness Allergies: Coded Allergies: No Known Allergies (Unverified , 08/14/18) COVID-19 Screening Contact w/high risk pt: Yes Recent Travel to affected area: No Experienced COVID-19 symptoms?: Yes COVID-19 symptoms experienced: Shortness of Breath COVID-19 Testing performed SCREW MACHINE OPERATOR SINGLE SPINDLE: No Nursing Documentation-PMH Hx Cardiac Problems: No Hx Hypertension: Yes - HDL, HYPOCALCEMIA Hx Pacemaker: No Hx Asthma: No Hx COPD: No Hx Diabetes: No Hx Cancer: No Hx Dialysis: No - BPH Hx Neurological Problems: Yes - Dementia Hx Seizures: No Physical Exam Vital Signs Date Time Temp Pulse Resp B/P (MAP) Pulse Ox O2 Delivery O2 Flow Rate FiO2 03/16/20 06:10 97.9 142 28 102/77 (85) 96 Non-Rebreather 10.0 03/16/20 06:45 100 Procedures Central Line Central Line : Consent: Emergent Central Line Lumen: triple Maximal Sterile Barrier Tech: yes cap, yes mask, yes sterile gown, yes sterile gloves, yes large sterile sheet, yes hand hygiene, yes chlorhexidine prep No Max Barrier Tech Because: emergency insertion Central Line Postion: femoral (R) Complications: none Central Line Post Position: sutured, good blood return Attempts: One Patient Tolerated: Well Complications: None Medical Decision Making Diagnostic Impression: Primary Impression: Respiratory distress Additional Impressions: AMS (altered mental status) Qualified Codes: R41.82 - Altered mental status, unspecified Hypoxia Sepsis Qualified Codes: A41.9 - Sepsis, unspecified organism UTI (urinary tract infection) Qualified Codes: N39.0 - Urinary tract infection, site not specified ER Course Patient became hypotensive requiring a central line, pressors were started, patient is currently on insulin drip patient admitted to Dr. Luna Last Vital Signs Date Time Temp Pulse Resp B/P (MAP) Pulse Ox O2 Delivery O2 Flow Rate FiO2 03/16/20 09:05 130 30 84/57 100 Mechanical Ventilator 100 03/16/20 07:05 100.6 03/16/20 06:15 10.0 Disposition: ADMITTED INPATIENT Condition: Critical Referrals: NON PHYSICIAN (PCP) Mauri Peters MD March 16, 2020 09:33
[2020-03-16] MEDS ORDERED: Insulin Rate Change 1 Each MISC PRN ×4 (12:00→18:00)
[2020-03-16] MEDS ORDERED: Insulin Human Regular 100units/ml 3ml IV PRN ×7 (12:00→18:00)
[2020-03-16] MEDS ORDERED: Piperacillin/Tazobactam 3.375 GM in NS 110 ML IVPB SCH (12:00)
[2020-03-16] MEDS: Insulin Reg 100 units Premix 100 ML IVPB SCH ×2 (12:03→14:30)
[2020-03-16] MEDS: propofoL 1,000mg/100ml 100 ML IV SCH ×2 (12:05→13:25)
[2020-03-16] MEDS ORDERED: Phenylephrine 100 MG in D5W 240 ML IV SCH (12:08)
[2020-03-16] MEDS: Phenylephrine 100 MG in NS 240 ML IV SCH ×2 (12:15→13:34)
[2020-03-16] MEDS: Insulin Human Regular 100units/ml 3ml IV PRN ×3 (12:54→15:12)
[2020-03-16] MEDS ORDERED: Sodium Bicarbonate 50ml Carp IV SCH (13:55)
[2020-03-16] MEDS ORDERED: Vasopressin 100 UNITS in NS 95 ML IV SCH (13:55)
--- NOTE | 2020-03-16 14:01 | History & Physical ---
History and Physical History & Physicial patient presents with MOF respiratory failure and profound shock unable to give history at this time [facility] depression dementia hypertension MEDS and ALLERGIES reviewed and reconciled SOCIAL homeless no family available (called SNF) PHYSICAL intubated on vent rhonchi tachy RR no CC obtunded Labs Test 03/16/20 06:40 03/16/20 09:20 03/16/20 09:46 03/16/20 12:26 White Blood Count 18.2 K/UL (4.8-10.8) Red Blood Count 6.87 M/UL (4.70-6.10) Hemoglobin 17.6 G/DL (14.2-18.0) Hematocrit 54.9 % (42.0-52.0) Mean Corpuscular Volume 80 FL (80-99) Mean Corpuscular Hemoglobin 25.7 PG (27.0-31.0) Mean Corpuscular Hemoglobin Concent 32.1 G/DL (32.0-36.0) Red Cell Distribution Width 13.7 % (11.6-14.8) Platelet Count 233 K/UL (150-450) Mean Platelet Volume 8.8 FL (6.5-10.1) Neutrophils (%) (Auto) % (45.0-75.0) Lymphocytes (%) (Auto) % (20.0-45.0) Monocytes (%) (Auto) % (1.0-10.0) Eosinophils (%) (Auto) % (0.0-3.0) Basophils (%) (Auto) % (0.0-2.0) Differential Total Cells Counted 100 Neutrophils % (Manual) 81 % (45-75) Lymphocytes % (Manual) 15 % (20-45) Monocytes % (Manual) 4 % (1-10) Eosinophils % (Manual) 0 % (0-3) Basophils % (Manual) 0 % (0-2) Band Neutrophils 0 % (0-8) Platelet Estimate Adequate Platelet Morphology Normal Red Blood Cell Morphology Normal Prothrombin Time 12.0 SEC (9.30-11.50) Prothromb Time International Ratio 1.1 (0.9-1.1) Activated Partial Thromboplast Time 19 SEC (23-33) Urine Color Pale yellow Urine Appearance Slightly cloudy Urine pH 5 (4.5-8.0) Urine Specific [place] 1.020 (1.005-1.035) Urine Protein 2+ (NEGATIVE) Urine Glucose (UA) 4+ (NEGATIVE) Urine Ketones 1+ (NEGATIVE) Urine Blood 3+ (NEGATIVE) Urine Nitrite Negative (NEGATIVE) Urine Bilirubin Negative (NEGATIVE) Urine Urobilinogen Normal MG/DL (0.0-1.0) Urine Leukocyte Esterase 3+ (NEGATIVE) Urine RBC 5-10 /HPF (0 - 0) Urine WBC 30-40 /HPF (0 - 0) Urine Squamous Epithelial Cells Few /LPF (NONE/OCC) Urine Bacteria Moderate /HPF (NONE) Sodium Level 172 MMOL/L (136-145) Potassium Level 3.5 MMOL/L (3.5-5.1) Chloride Level 122 MMOL/L (98-107) Carbon Dioxide Level 23 MMOL/L (21-32) Anion Gap 27 mmol/L (5-15) Blood Urea Nitrogen 119 mg/dL (7-18) Creatinine 5.9 MG/DL (0.55-1.30) Estimat Glomerular Filtration Rate 11.8 mL/min (>60) Glucose Level 1125 MG/DL (74-106) Lactic Acid Level 7.50 mmol/L (0.4-2.0) 8.30 mmol/L (0.66-2.22) Calcium Level 10.2 MG/DL (8.5-10.1) Phosphorus Level 9.6 MG/DL (2.5-4.9) Magnesium Level 3.7 MG/DL (1.8-2.4) Total Bilirubin 0.4 MG/DL (0.2-1.0) Aspartate Amino Transf (AST/SGOT) 18 U/L (15-37) Alanine Aminotransferase (ALT/SGPT) 20 U/L (12-78) Alkaline Phosphatase 132 U/L (46-116) Total Creatine Kinase 541 U/L (26-308) Creatine Kinase MB 3.8 NG/ML (0.0-3.6) Creatine Kinase MB Relative Index 0.7 Troponin I 1.478 ng/mL (0.000-0.056) Pro-B-Type Natriuretic Peptide 3079 pg/mL (0-125) Total Protein 8.7 G/DL (6.4-8.2) Albumin 3.5 G/DL (3.4-5.0) Globulin 5.2 g/dL Albumin/Globulin Ratio 0.7 (1.0-2.7) Triglycerides Level 122 MG/DL (30-150) Lipase > 2000 U/L (73-393) Arterial Blood pH 7.157 (7.350-7.450) 7.248 (7.350-7.450) Arterial Blood Partial Pressure CO2 40.1 mmHg (35.0-45.0) 35.7 mmHg (35.0-45.0) Arterial Blood Partial Pressure O2 78.2 mmHg (75.0-100.0) 71.7 mmHg (75.0-100.0) Arterial Blood HCO3 13.9 mmol/L (22.0-26.0) 15.2 mmol/L (22.0-26.0) Arterial Blood Oxygen Saturation 91.5 % (95-100) 91.3 % (95-100) Arterial Blood Base Excess -14.2 (-2-2) -11.0 (-2-2) Wilber Test Positive Positive IMPRESSION MOF septic shock DKA a/CRF dementia acute encephalopathy rule out COVID hypotension hypernatremia pancreatitis transaminitis PLAN multiple pressors IV antibiotics isolation hypervent insulin drip echo venous US NPO ID, renal, cards, gi prognosis poor called facility- no family medications/laboratory data/nursing notes/ICU care reviewed in detail note reviewed and edited care discussed with RN and RT ICU time spent >60 minutes Emiliano Luna MD March 16, 2020 14:01
--- NOTE | 2020-03-16 14:01 | Consultation ---
Emiliano Luna MD March 16, 2020 14:01
[2020-03-16] MEDS ORDERED: Insulin Reg 100 units Premix 100 ML IVPB SCH ×3 (15:05→18:00)
[2020-03-16] MEDS ORDERED: Etomidate 40mg/20ml Inj IV ONE (15:56)
[2020-03-16] MEDS ORDERED: Rocuronium Bromide 50mg/5ml Inj IV ONE (15:56)
--- NOTE | 2020-03-16 17:15 | Consultation ---
DATE OF CONSULTATION: 03/16/2020 INFECTIOUS DISEASES CONSULTATION This consult is for coverage of Dr. Hollingsworth. CONSULTING PHYSICIAN: Moises Johnson MD PRIMARY ATTENDING PHYSICIAN: Emiliano Luna MD. REASON FOR CONSULTATION: Sepsis, UTI, pneumonia, and pancreatitis. HISTORY OF PRESENT ILLNESS: This is a 64-year-old male admitted from a nursing facility today because of shortness of breath. He was tachycardic, altered mental status, in the ER had leukocytosis of 18.2, fever of 100.6, hypernatremic, acidosis, hyperglycemia with blood sugar of 1125, found to have acute renal failure and acute respiratory failure, intubated and transferred to ICU. Currently, he is sedated with propofol and also is on insulin drip. PAST MEDICAL HISTORY: Significant for hypertension, BPH, hyperlipidemia, diabetes mellitus, dementia. ALLERGIES: No known drug allergies. MEDICATIONS: Get a dose of vancomycin and cefepime in the ER. Currently he is on norepinephrine, insulin drip. SOCIAL HISTORY: retirement resident, single. No other history obtainable. REVIEW OF SYSTEMS: Not obtainable. PHYSICAL EXAMINATION: VITAL SIGNS: Temperature 99.8, pulse 144, respiratory rate 33, blood pressure 82/61. GENERAL APPEARANCE: Seems to have normal weight. HEENT: Head and neck orally intubated. HEART: Tachycardic. LUNGS: On mechanical ventilator. ABDOMEN: NG tube. EXTREMITIES: No edema. NEUROLOGIC: Sedated and unresponsive. LABORATORY AND DIAGNOSTIC DATA: WBC 18.2, hemoglobin 17.6, hematocrit 54.9, platelets 233. Sodium 172, potassium 3.5, chloride 122, bicarb 23, BUN 119, creatinine 5.9, glucose is 1125. Lactic acid is 8.3, calcium 10.2, magnesium 3.7, phosphorus 9.6, alkaline phosphatase 132. CK is 541. Troponin is 1.478. Lipase is more than 2000. UA showed wbc's of 30 to 40, rbc's of 5 to 10, ketones 3+, leukocyte esterase 3+. Chest x-ray showed right lung atelectasis versus infiltrate. IMPRESSION: Sepsis with septic shock. The patient has pyuria, may have have UTI, may have pneumonia in right lung base, has pancreatitis, has diabetes mellitus and with hyperglycemia and coma, has acute renal failure, acute respiratory failure, BPH, hypernatremia, acidosis. RECOMMENDATION: Continue vancomycin and cefepime. Abdominal ultrasound to rule out intra-abdominal infection.Will try to Rule out COVID-19. We will followup COVID-19 tests. At the end of my exam, I thank Dr. Luna, for involving me in the care of this patient. Moises Johnson M.D. DR: Beba JOB#: [id number] CC: LOYDA
--- NOTE | 2020-03-16 19:06 | Emergency Room Report ---
Physical Exam Code Blue called for asystole. Patient admitted for severe sepsis. Intubated and on max levophed and vasopressin. Initial lactic acid = 7.5 and increased to 12. + troponin. lipase > 2000. Sodium 172. Recent pH = 7.28 with bicarb of 15. K = 3.5 with glucose 1125. Epi X3 prior to my arrival. Last 24 Hour Vital Signs Date Time Temp Pulse Resp B/P (MAP) Pulse Ox O2 Delivery O2 Flow Rate FiO2 03/16/20 18:03 143 23 65/22 (36) 98 03/16/20 18:00 33/14 03/16/20 18:00 142 26 33/14 (20) 98 03/16/20 17:46 62/30 03/16/20 17:30 161 28 87/45 (59) 98 03/16/20 17:15 149 26 56/26 (36) 97 03/16/20 17:00 153 29 46/19 (28) 97 03/16/20 17:00 46/19 03/16/20 16:45 151 34 63/24 (37) 97 03/16/20 16:40 150 34 64/45 (51) 97 03/16/20 16:30 150 33 78/57 (64) 97 03/16/20 16:25 148 33 58/33 (41) 97 03/16/20 16:15 149 38 66/32 (43) 97 03/16/20 16:04 150 03/16/20 16:00 72/42 03/16/20 16:00 100 03/16/20 16:00 Mechanical Ventilator 03/16/20 16:00 98.1 151 35 66/34 (45) 97 03/16/20 15:45 156 36 73/34 (47) 94 03/16/20 15:30 160 29 86/41 (56) 98 03/16/20 15:23 160 34 100 03/16/20 15:15 159 34 86/46 (59) 03/16/20 15:00 157 32 84/47 (59) 100 03/16/20 15:00 86/34 03/16/20 14:51 151 31 83/25 (44) 03/16/20 14:50 148 32 81/38 (52) 03/16/20 14:48 148 33 82/42 (55) 03/16/20 14:47 150 34 78/40 (53) 03/16/20 14:41 149 33 74/38 (50) 03/16/20 14:40 147 32 78/42 (54) 03/16/20 14:39 147 34 74/36 (49) 100 03/16/20 14:37 144 34 81/28 (45) 03/16/20 14:36 144 34 79/44 (56) 03/16/20 14:35 145 34 70/23 (39) 03/16/20 14:31 142 30 73/42 (52) 03/16/20 14:30 143 31 72/30 (44) 03/16/20 14:29 143 32 80/34 (49) 03/16/20 14:27 141 33 84/30 (48) 94 03/16/20 14:20 136 29 67/34 (45) 03/16/20 14:18 135 28 78/38 (51) 03/16/20 14:17 134 28 85/27 (46) 03/16/20 14:15 133 27 82/40 (54) 03/16/20 14:04 135 26 66/44 (51) 100 03/16/20 14:03 136 26 70/33 (45) 100 03/16/20 14:02 137 28 71/43 (52) 03/16/20 14:00 81/34 03/16/20 13:57 147 31 75/42 (53) 03/16/20 13:56 148 29 78/32 (47) 03/16/20 13:55 147 21 82/26 (44) 03/16/20 13:54 145 27 67/28 (41) 03/16/20 13:52 147 31 74/33 (47) 03/16/20 13:51 151 33 78/28 (45) 03/16/20 13:51 152 39 100 03/16/20 13:50 149 27 70/31 (44) 03/16/20 13:47 162 34 69/32 (44) 03/16/20 13:42 157 38 83/47 (59) 03/16/20 13:38 152 34 87/44 (58) 98 03/16/20 13:36 160 36 86/38 (54) 03/16/20 13:34 158 37 77/52 (60) 03/16/20 13:34 159 76/32 03/16/20 13:30 158 38 76/32 (47) 03/16/20 13:25 39 95/54 Mechanical Ventilator 100 03/16/20 13:15 157 36 77/37 (50) 03/16/20 13:02 157 38 94/47 (63) 100 03/16/20 13:00 80/46 03/16/20 13:00 158 36 88/41 (57) 100 03/16/20 12:56 95/55 03/16/20 12:45 152 36 95/55 (68) 100 03/16/20 12:30 151 35 96/54 (68) 100 03/16/20 12:15 144 95/55 03/16/20 12:00 149 03/16/20 12:00 Mechanical Ventilator 03/16/20 12:00 91/43 03/16/20 12:00 35 91/43 Mechanical Ventilator 100 03/16/20 11:29 100 03/16/20 11:29 Mechanical Ventilator 03/16/20 11:15 144 35 87/43 (58) 96 03/16/20 11:04 144 33 100 03/16/20 11:00 97/57 03/16/20 11:00 36 98/65 Mechanical Ventilator 100 03/16/20 11:00 97.5 145 37 98/65 (76) 97 03/16/20 10:45 99.8 132 30 82/61 97 Mechanical Ventilator 10.0 100 03/16/20 10:15 82/61 03/16/20 10:15 30 89/61 Mechanical Ventilator 03/16/20 09:57 99.8 132 27 92/68 97 Mechanical Ventilator 100 03/16/20 09:44 47/19 03/16/20 09:36 139 31 100 03/16/20 09:05 130 30 84/57 100 Mechanical Ventilator 100 03/16/20 08:49 30 89/63 Mechanical Ventilator 03/16/20 08:00 131 30 98/58 100 Mechanical Ventilator 100 03/16/20 07:49 30 120/76 Mechanical Ventilator 03/16/20 07:24 25 93/63 Mechanical Ventilator 100 03/16/20 07:05 100.6 134 25 92/63 100 Mechanical Ventilator 100 03/16/20 07:03 25 25 100 03/16/20 06:45 100 03/16/20 06:15 140 39 Non-Rebreather 10.0 03/16/20 06:15 100.6 140 39 102/77 96 Non-Rebreather 10.0 03/16/20 06:10 97.9 142 28 102/77 (85) 96 Non-Rebreather 10.0 Eyes: bilateral eye other - unreactive ENT: other - ET tube Neck: supple Respiratory: other - good chest rise Cardiovascular #1: other - pulses only with CPR - femoral CVP Gastrointestinal: scaphoid Genitourinary: other - young Musculoskeletal: other - flaccid Neurologic: other - unresponsive Psychiatric: other - unresponsive Skin: other - mottling CPR/Code Blue CPR/Code Blue Narrative Code start 1840. CPR being performed with pulses. Directed by me. Epi 3 doses had been given. Bicarb given just prior to my arrival. Equal breath sounds per RT without increased peak pressures. Asysole on monitor. Epi 1 amp given. Asystole. Patient demonstrates cardiopulmonary unresponsiveness. Code terminated at 1850 and patient pronounced. Medical Decision Making Diagnostic Impression: Primary Impression: Cardiopulmonary arrest Additional Impressions: Hyperglycemic hyperosmolar nonketotic coma Pancreatitis Qualified Codes: K85.90 - Acute pancreatitis without necrosis or infection, unspecified Severe sepsis ER Course Asystolic arrest. See Code Blue notes. Patient demonstrated cardiopulmonary unresponsiveness and pronounced at 1850. Laboratory Tests Test 03/16/20 06:40 03/16/20 09:20 03/16/20 09:46 03/16/20 12:26 White Blood Count 18.2 K/UL (4.8-10.8) H Red Blood Count 6.87 M/UL (4.70-6.10) H Hemoglobin 17.6 G/DL (14.2-18.0) Hematocrit 54.9 % (42.0-52.0) H Mean Corpuscular Volume 80 FL (80-99) Mean Corpuscular Hemoglobin 25.7 PG (27.0-31.0) L Mean Corpuscular Hemoglobin Concent 32.1 G/DL (32.0-36.0) Red Cell Distribution Width 13.7 % (11.6-14.8) Platelet Count 233 K/UL (150-450) Mean Platelet Volume 8.8 FL (6.5-10.1) Neutrophils (%) (Auto) % (45.0-75.0) Lymphocytes (%) (Auto) % (20.0-45.0) Monocytes (%) (Auto) % (1.0-10.0) Eosinophils (%) (Auto) % (0.0-3.0) Basophils (%) (Auto) % (0.0-2.0) Differential Total Cells Counted 100 Neutrophils % (Manual) 81 % (45-75) H Lymphocytes % (Manual) 15 % (20-45) L Monocytes % (Manual) 4 % (1-10) Eosinophils % (Manual) 0 % (0-3) Basophils % (Manual) 0 % (0-2) Band Neutrophils 0 % (0-8) Platelet Estimate Adequate Platelet Morphology Normal Red Blood Cell Morphology Normal Prothrombin Time 12.0 SEC (9.30-11.50) H Prothrombin Time INR 1.1 (0.9-1.1) Activated Partial Thromboplast Time 19 SEC (23-33) L Urine Color Pale yellow Urine Appearance Slightly cloudy Urine pH 5 (4.5-8.0) Urine Specific [place] 1.020 (1.005-1.035) Urine Protein 2+ (NEGATIVE) H Urine Glucose (UA) 4+ (NEGATIVE) H Urine Ketones 1+ (NEGATIVE) H Urine Blood 3+ (NEGATIVE) H Urine Nitrite Negative (NEGATIVE) Urine Bilirubin Negative (NEGATIVE) Urine Urobilinogen Normal MG/DL (0.0-1.0) Urine Leukocyte Esterase 3+ (NEGATIVE) H Urine RBC 5-10 /HPF (0 - 0) H Urine WBC 30-40 /HPF (0 - 0) H Urine Squamous Epithelial Cells Few /LPF (NONE/OCC) Urine Bacteria Moderate /HPF (NONE) H Sodium Level 172 MMOL/L (136-145) *H Potassium Level 3.5 MMOL/L (3.5-5.1) Chloride Level 122 MMOL/L (98-107) H Carbon Dioxide Level 23 MMOL/L (21-32) Anion Gap 27 mmol/L (5-15) H Blood Urea Nitrogen 119 mg/dL (7-18) H Creatinine 5.9 MG/DL (0.55-1.30) H Estimated Glomerular Filtration Rate 11.8 mL/min (>60) Glucose Level 1125 MG/DL (74-106) *H Lactic Acid Level 7.50 mmol/L (0.4-2.0) H 8.30 mmol/L (0.66-2.22) H Calcium Level 10.2 MG/DL (8.5-10.1) H Phosphorus Level 9.6 MG/DL (2.5-4.9) H Magnesium Level 3.7 MG/DL (1.8-2.4) H Total Bilirubin 0.4 MG/DL (0.2-1.0) Aspartate Amino Transferase (AST) 18 U/L (15-37) Alanine Aminotransferase (ALT) 20 U/L (12-78) Alkaline Phosphatase 132 U/L (46-116) H Total Creatine Kinase 541 U/L (26-308) H Creatine Kinase MB 3.8 NG/ML (0.0-3.6) H Creatine Kinase MB Relative Index 0.7 Troponin I 1.478 ng/mL (0.000-0.056) Pro-B-Type Natriuretic Peptide 3079 pg/mL (0-125) H Total Protein 8.7 G/DL (6.4-8.2) H Albumin 3.5 G/DL (3.4-5.0) Globulin 5.2 g/dL Albumin/Globulin Ratio 0.7 (1.0-2.7) L Triglycerides Level 122 MG/DL (30-150) Lipase > 2000 U/L (73-393) H Arterial Blood pH 7.157 (7.350-7.450) 7.248 (7.350-7.450) Arterial Blood Partial Pressure CO2 40.1 mmHg (35.0-45.0) 35.7 mmHg (35.0-45.0) Arterial Blood Partial Pressure O2 78.2 mmHg (75.0-100.0) 71.7 mmHg (75.0-100.0) L Arterial Blood HCO3 13.9 mmol/L (22.0-26.0) *L 15.2 mmol/L (22.0-26.0) *L Arterial Blood Oxygen Saturation 91.5 % (95-100) L 91.3 % (95-100) L Arterial Blood Base Excess -14.2 (-2-2) *L -11.0 (-2-2) *L Wilber Test Positive Positive Test 03/16/20 15:00 Urine Random Sodium 62 mmol/L (20-110) Urine Creatinine 108.1 MG/DL (30.0-125.0) Lactic Acid Level 12.50 mmol/L (0.4-2.0) H Rhythm Strip Diag. Results Rhythm: other - asystole Status: worsened Disposition: Condition: Referrals: NON PHYSICIAN (PCP) Sacha Fuller MD March 16, 2020 19:06
[2020-03-16] MEDS ORDERED: Heparin 5000 units/ml inj SUBQ SCH (21:00)
--- NOTE | 2020-03-17 17:37 | Discharge Summary ---
Discharge Summary Discharge Summary _ DATE OF ADMISSION: [] 03/16/2020 DATE OF DISCHARGE: 03/16/2020 DISCHARGED BY: REASON FOR ADMISSION: 64 years old male, resident of [facility], with past medical history of chronic metabolic encephalopathy, hypertension, depression, dementia , presented to emergency department with shortness of breath. Upon presentation patient was in acute respiratory distress. He was hypoxic, tachypneic, tachycardic. Patient was orally intubated in emergency department. Laboratory work-up revealed leukocytosis WBC 18.2. Lymphopenia. ABG after intubation revealed acidosis with pH 7.15, repeated later pH up to 7.25 . Patient continued to be an FiO2 100% Lactic acid 7.5. Glucose 1125. BUN 119, creatinine 5.9. Anion gap 27. Sodium 172. Phosphorus 9.6, calcium 10.2 magnesium 3.7. Total CK 541 , CK-MB 3.8. Lipase above 2000. Urinalysis revealed pyuria, moderate bacteria, +2 protein, +1 ketones ,+4 glucose. In the emergency department patient pancultured , received 3 L of fluid resuscitation, started on empiric antibiotic. Noted elevated troponin 1.478 , likely to do increased demand. Patient received insulin , potassium and started on pressors. Patient admitted to ICU for further management. CONSULTANTS: ID specialist Dr. Moises Garneryeny [facility] COURSE: Patient admitted to ICU. Patient required double pressors: phenylephrine and norepinephrine to keep mean arterial blood pressure above 65. Patient started on insulin drip as per protocol. Patient started on empiric antibiotics. Lactic acid remains elevated ; last lactic acid 12.5. Patient coded at 18:41 . Code blue conducted as per ACLS protocol. Patient remained in asystole. Despite all resuscitative attempts, patient demonstrated cardiopulmonary unresponsiveness. Patient was pronounced at 18:50 on 03/16. Cause of : cardiopulmonary arrest At the time of this dictation blood culture revealed gram-positive cocci in cluster 4 out of 4 bottles. Urine culture revealed gram-negative bacilli. Sputum culture still pending FINAL DIAGNOSES: Status post cardiopulmonary arrest DKA Severe sepsis with shock Gram-positive bacteremia Acute hypoxemic respiratory failure requiring intubation Pancreatitis Gram-negative UTI Multiorgan failure Elevated troponin, likely due to demand ischemia Acute kidney injury versus chronic renal failure Acute encephalopathy Suspected COVID-19 infection Hypernatremia Pancreatitis I have been assigned to dictate discharge summary for this account. I was not involved in the patient's management. Mi Vaz NP March 17, 2020 17:37
[2020-03-17] MEDS ORDERED: Cefepime HCl 1 GM in D5W 55 ML IVPB SCH (18:00)
[2020-03-17] MEDS ORDERED: Cefepime HCl 1 GM in NS 55 ML IVPB SCH (18:00)
== END 2020-03-16 18:53 | disposition expired | DRG 720 ==
LOC: EDBD 06:13 → EMR 06:30 → ICU 07:23 → EDBEDREQ 09:26
PROC: 5A1935Z Respiratory Ventilation, Less than 24 Consecutive Hours (ICD-10-PCS; principal; 2020-03-16)
PROC: 0BH17EZ Insertion of Endotracheal Airway into Trachea, Via Natural or Artificial Opening (ICD-10-PCS; 2020-03-16)
PROC: 06HM33Z Insertion of Infusion Device into Right Femoral Vein, Percutaneous Approach (ICD-10-PCS; 2020-03-16)
PROC: 5A12012 Performance of Cardiac Output, Single, Manual (ICD-10-PCS; 2020-03-16)
DX: A41.9 Sepsis, unspecified organism (principal); R65.21 Severe sepsis with septic shock; E11.10 Type 2 diabetes mellitus with ketoacidosis without coma; J96.01 Acute respiratory failure with hypoxia; K85.90 Acute pancreatitis without necrosis or infection, unspecified; N39.0 Urinary tract infection, site not specified; B96.89 Other specified bacterial agents as the cause of diseases classified elsewhere; E87.0 Hyperosmolality and hypernatremia; I24.8 Other forms of acute ischemic heart disease; N17.9 Acute kidney failure, unspecified; N18.9 Chronic kidney disease, unspecified; F03.90 Unspecified dementia, unspecified severity, without behavioral disturbance, psychotic disturbance, mood disturbance, and anxiety; I12.9 Hypertensive chronic kidney disease with stage 1 through stage 4 chronic kidney disease, or unspecified chronic kidney disease; E11.22 Type 2 diabetes mellitus with diabetic chronic kidney disease; N40.0 Benign prostatic hyperplasia without lower urinary tract symptoms
CPT/HCPCS: 31500; 36415; 36600; 71045; 80053; 81003; 82550; 82553; 82570; 82803; 82962; 83605; 83690; 83735; 83880; 84100; 84300; 84478; 84484; 85007; 85025; 85610; 85730; 87040; 87070; 87081; 87086; 87181; 87205; 87635; 92950; 94002; 94003; 96365; 96367; 96368; 96375; 99291; J2370; J7030